=== PATIENT | male | born 1960 | race Caucasian/White ===

== ENCOUNTER 2017-07-24 16:01 | Emergency (ER) | payer BC ==
[~2017-07-24] VITALS: Ht 180.3 cm; Wt 127.0 kg
[~2017-07-24 16:01] MED LIST: BYSTOLIC20 MG PO; IBUPROFEN 800800 M1 PO
[2017-07-24 16:19] LABS: ABSOLUTE BASOPHILS 0.1 thou/uL (0.0-0.2); ABSOLUTE EOSINOPHILS 0.2 thou/uL (0.0-0.7); ABSOLUTE LYMPHOCYTES 1.8 thou/uL (0.8-5.3); ABSOLUTE MONOCYTES 1.2 thou/uL (0.0-1.2); ABSOLUTE NEUTROPHILS 6.4 thou/uL (1.6-8.1); BASOPHILS 0.9 %; EOSINOPHILS 2.2 %; HEMATOCRIT 52.5 % (42.0-52.0); HEMOGLOBIN 18.1 gm/dL (14.0-18.0); LYMPHOCYTES 18.7 %; MCH 32.4 pg (26.0-34.0); MCHC 34.5 g/dL (28.0-37.0); MONOCYTES 12.1 %; MPV 8.4 fl. (7.2-11.1); NUCLEATED RBCS 0 /100WBC; PLATELET COUNT* 196 thou/uL (150-400); POLYS 66.1 %; RBC 5.58 mil/uL (4.50-6.00); RDW-CV 13.2 % (10.5-14.5); WBC 9.7 thou/uL (4.0-11.0)
[2017-07-24 16:30] LABS: ANION GAP 8 mmol/L (7-16); BUN 14 mg/dL (7-18); CALCIUM 8.8 mg/dL (8.5-10.1); CHLORIDE 103 mmol/L (98-107); CO2 29 mmol/L (21-32); CREATININE 1.1 mg/dL (0.6-1.3); GLUCOSE 105 mg/dL (70-99); POTASSIUM 3.6 mmol/L (3.5-5.1); SODIUM 140 mmol/L (136-145)
[2017-07-24 16:33] LABS: APTT 29.4 Seconds (25.0-31.3); INR 1.1; PROTIME 10.9 Seconds (9.20-11.50)
[2017-07-24 16:50] LABS: ALBUMIN 4.3 g/dL (3.4-5.0); ALKALINE PHOSPHATASE 96 U/L (46-116); CK-MB MASS 4.4 ng/mL (<0.5-3.6); LIPASE 96 U/L (73-393); MAGNESIUM 1.9 mg/dL (1.8-2.4); NT-PRO BRAIN NAT PEPTIDE 182 pg/mL (<300); SGOT 33 U/L (15-37); SGPT 56 U/L (30-65); TOTAL BILIRUBIN 1.2 mg/dL (<0.1-1.0); TOTAL PROTEIN 7.7 g/dL (6.4-8.2); TROPONIN-I LEVEL <0.06 ng/mL (<0.06)
[2017-07-24] MEDS ORDERED: BYSTOLIC20 MG PO (17:05)
[2017-07-24 17:38] VITALS: BP 154/112
--- NOTE | 2017-07-25 14:36 | EKG ---
[place] [address] ELECTROCARDIOGRAM REPORT Name: CECILIA GRACE Room: [facility]#: [id number] Admission: 07/24/17 Attend Phys: Discharge: 07/24/17 Date of : 64 Report #: [id number] THIS REPORT FOR: //name// [facility] ED Test Date: 2017-07-24 Test Time: 16:06:16 Pat Name: CECILIA ORRJOO Department: Room: Gender: M Mail Manager: : 1960 Requested By: Derrek Rios Order Number: [id number] MD: Wilbert Kaba Measurements Intervals [place] Rate: 91 P: 65 ID: 160 QRS: 60 QRSD: 106 T: 41 QT: 369 QTc: 455 Interpretive Statements Sinus rhythm Probable left atrial enlargement No previous ECG available for comparison Electronically Signed On 07-25-2017 14:36:24 CDT by Wilbert Kaba [email or web address] <ELECTRONICALLY SIGNED> By: Wilbert Kaba MD, [facility] 07/25/17 1436 1606 1606 Wilbert Kaba MD, FACC /EPI
== END 2017-07-24 17:38 | disposition home or self-care (01) ==
LOC: M.ERS 16:01
PROVIDERS: Family Medicine
DX: R07.89 Other chest pain (principal); I10 Essential (primary) hypertension

== ENCOUNTER → 2018-10-08 | Outpatient (CLI) | payer BC ==
[2018-10-08 14:37] LABS: ABSOLUTE BASOPHILS 0.1 thou/uL (0.0-0.2); ABSOLUTE EOSINOPHILS 0.3 thou/uL (0.0-0.7); ABSOLUTE LYMPHOCYTES 1.6 thou/uL (0.8-5.3); ABSOLUTE MONOCYTES 0.9 thou/uL (0.0-1.2); ABSOLUTE NEUTROPHILS 5.9 thou/uL (1.6-8.1); BASOPHILS 1.4 %; EOSINOPHILS 3.6 %; HEMOGLOBIN 18.1 gm/dL (14.0-18.0); LYMPHOCYTES 17.8 %; MCH 32.4 pg (26.0-34.0); MCHC 34.1 g/dL (28.0-37.0); MCV 94.9 fL (80.0-100.0); MONOCYTES 10.6 %; MPV 8.6 fl. (7.2-11.1); NUCLEATED RBCS 0 /100WBC; PLATELET COUNT* 187 thou/uL (150-400); POLYS 66.6 %; RBC 5.59 mil/uL (4.50-6.00); RDW-CV 13.3 % (10.5-14.5); WBC 8.8 thou/uL (4.0-11.0)
[2018-10-08 14:49] LABS: ALBUMIN 4.2 g/dL (3.4-5.0); CALCIUM 9.2 mg/dL (8.5-10.1); CREATININE 1.2 mg/dL (0.6-1.3); POTASSIUM 4.3 mmol/L (3.5-5.1); TOTAL BILIRUBIN 0.8 mg/dL (<0.1-1.0); TOTAL PROTEIN 7.5 g/dL (6.4-8.2)
[2018-10-08 16:37] LABS: ESR (SEDRATE) 0 mm/hr (0-20)
[2018-10-09 13:09] LABS: GLYCOHEMOGLOBIN (HGB A1C) 7.8 % (4.8-5.6)
== END ==
LOC: M.CT 13:00 → M.LAB 13:30
PROVIDERS: Registered Nurse
DX: I10 Essential (primary) hypertension (principal); J84.10 Pulmonary fibrosis, unspecified; E11.65 Type 2 diabetes mellitus with hyperglycemia; E04.1 Nontoxic single thyroid nodule; M47.812 Spondylosis without myelopathy or radiculopathy, cervical region; R59.0 Localized enlarged lymph nodes; Z87.891 Personal history of nicotine dependence